=== PATIENT | female | born 1960 | race Caucasian/White ===

== ENCOUNTER 2018-07-28 15:35 | Observation (INO) ==
[2018-07-28] MEDS ORDERED: ASPIRIN PO ONE (15:48)
--- NOTE | 2018-07-28 16:11 | Diag Imaging Result Doc PS360 ---
CHEST-2 VIEWS - 07/28/2018 INDICATION: chest pain COMPARISON: None FINDINGS: The lungs are normally expanded and clear. Heart size and mediastinal contours are normal. No pneumothorax or pleural effusion. There is a calcified granuloma in the left lower lobe. IMPRESSION: Negative exam. Electronically signed by Hayden Almanzar 07/28/2018 4:09 PM
[2018-07-28 16:47] LABS: BASO# 0.08 X1000 (0.0-0.2); BASO% 1.1 % (0.0-0.8); EOS# 0.01 X1000 (0.0-0.7); EOS% 0.1 % (0.0-10.0); HEMATOCRIT 38.3 % (37.0-47.0); HEMOGLOBIN 13.7 g/dL (12.0-16.0); LYMPH% 33.2 % (20.5-51.1); MCH 37.1 PG (27-31); MCHC 35.8 g/dL (33-37); MCV 103.8 FL (81-99); MPV 9.4 FL (7.4-10.4); NEUT# 4.33 X1000 (1.4-6.5); NEUT% 57.6 % (42.2-75.2); PLT 400 X1000 (130-400); RBC 3.69 XMIL (4.2-5.4); RDW 12.2 % (11.5-14.5); WBC 7.52 X1000 (4.8-10.8)
[2018-07-28] MEDS ORDERED: ATIVAN IV ONE (16:58)
[2018-07-28 17:09] LABS: ALB/GLOB RATIO 1.3; ALBUMIN 3.6 g/dL (3.5-5.0); CALCIUM 8.2 mg/dL (8.8-10.2); CREATININE 1.1 mg/dL (0.5-0.9); POTASSIUM 3.8 mmol/L (3.5-5.1); TOTAL BILIRUBIN 0.31 mg/dL (0.20-1.00); TOTAL PROTEIN 6.4 g/dL (6.3-8.3)
[2018-07-28 17:11] LABS: INR 0.83; PROTIME 12.1 Seconds (11.0-16.0)
[2018-07-28 17:12] LABS: PTT 31.7 Seconds (22.3-41.8)
--- NOTE | 2018-07-28 19:38 | HISTORY AND PHYSICAL ---
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 She admits she suffers with anxiety and it has been worse this year after she lost her mother. She has had depression and anxiety. She has been treated for hypertension. She has known hypercholesterolemia. She has never had any surgery other than I think her tubes tied. ALLERGIES: She has no known drug allergies. HOME MEDICATIONS: She does take Ativan 0.5 mg twice a day. I think she is on Cymbalta 60 mg a day and she takes some blood pressure medicines. She did not bring her medicines with her. SOCIAL HISTORY: She denies alcohol or tobacco at this time. REVIEW OF SYSTEMS: General: No weight gain or loss. No fever or chills. HEENT: Unremarkable. Respiratory: No increased work of breathing or dyspnea. Cardiovascular: No chest pain until 3 or 4 days ago and then a pressure type pain. She has had no pleuritic pain. No sharp stabbing pain. Gastrointestinal and Genitourinary: No gross hematuria or dysuria. Neurologic: No focal complaints. PHYSICAL EXAMINATION: VITAL SIGNS: Today, temp 98.1 degrees, pulse 100, respirations 19, blood pressure 124/77, pupils are equal and round. LUNGS: Clear in all lung antony. CARDIOVASCULAR: Regular rhythm and rate without murmur or S3. ABDOMEN: Soft. SKIN: Warm and dry. Weight 138 pounds, height 5 feet 3-1/2 inches. LABORATORY DATA: White count 7520, hematocrit 38, platelet count 400,000. Sodium 136, potassium 3.8, chloride 97, bicarb 23, BUN 16 creatinine 1.1. Blood sugar 152, calcium 8.2, alkaline phosphatase 153, albumin 3.6, PTT is 12, PTT is 31. Her chest x-ray negative. No sign any infiltrate. EKG was normal sinus rhythm, normal axis. Note the troponin is less than 0.01. CK is 56. ProBNP is 102. ASSESSMENT/PLAN: Atypical chest pain. I suspect this is probably related to anxiety and stress. We will check serial cardiac enzymes and she really wanted to see a law office manager. We will get Dr. Ramu Holloway to see her in the morning and see if she shows any sign of evolution but this does not look like[ active coronary artery disease. There is no radiation of pain. It is not associated with exertion. She does have risk factors and I mentioned she does have a history of tobacco. We will check serial EKGs and we will follow her blood pressure closely, and see if we can get her home medications. cc: Stephane Burns MD MTDIlda
[2018-07-28] MEDS ORDERED: TYLENOL PO PRN (22:16)
[2018-07-28] MEDS ORDERED: ZOFRAN IV PRN (22:16)
[2018-07-28] MEDS: ATIVAN PO SCH (22:48)
--- NOTE | 2018-07-29 01:41 | PROVIDER DOCUMENTATION ---
This chart was entered by Deion Robbins Scribe, acting as scribe for Shara Del Real MD. HPI-Chest Pain - General Chief Complaint: Chest Pain Stated Complaint: CP,SOB Time Seen by Provider: 07/28/18 16:34 Source: patient Allergies/Adverse Reactions: Patient Allergies Allergy/AdvReac Type Severity Reaction Status Date / Time No Known Allergies Allergy Verified 07/28/18 16:48 Home Medications: Home Medication List Medication Instructions Recorded Confirmed Last Taken Type Alprazolam 0.5 mg PO BID 07/28/18 07/28/18 07/27/18 History Amlodipine [Norvasc] 10 mg PO DAILY 07/28/18 07/28/18 07/28/18 20:30 History Aspirin 81 mg PO DAILY 07/28/18 07/28/18 07/28/18 History Buspirone [Buspar] 15 mg PO BID 07/28/18 07/28/18 07/28/18 20:30 History Duloxetine [Cymbalta] 60 mg PO DAILY 07/28/18 07/28/18 07/28/18 20:30 History Folic Acid 1 mg PO DAILY 07/28/18 07/28/18 07/28/18 20:30 History Losartan Potassium 100 mg PO DAILY 07/28/18 07/28/18 07/28/18 20:30 History Nebivolol [Bystolic] 5 mg PO DAILY 07/28/18 07/28/18 07/28/18 20:30 History ROSUVAstatin [Crestor] 10 mg PO DAILY 07/28/18 07/28/18 07/28/18 20:30 History - History of Present Illness-CP Nature of Presenting Problem: 57 y/o F presents to the ED c/o chest pain and shortness of breath. Patient reports yesterday she started having a pressure sensation that would last 3-4 minutes. Patient reports that she has had stressful events recently. Patient reports that she has panic attacks 3-4 times per year. Patient denies nausea, vomiting, fever and all other symptoms. Location: reports: substernal Chest Pain Radiation: reports: no radiation Quality of Pain: reports: pressure Severity in ED: mild Onset/Duration: 24 hours ago Timing: intermittent Context/Activities at Onset: reports: none Modifying Factors: improves with: nothing Associated Symptoms: reports: shortness of breath Similar Symptoms Previously?: No Recently Seen Here or By Another Healthcare Provider: No Review of Systems - Adult - REVIEW OF SYSTEMS - ADULT Constitutional: denies: chills, fever Eyes: reports: no symptoms reported Ears, Nose, Mouth & Throat: reports: no symptoms reported Cardiovascular: reports: chest pain. denies: palpitations Respiratory: reports: shortness of breath. denies: cough Gastrointestinal: denies: abdominal pain, diarrhea, nausea, vomiting Genitourinary: reports: no symptoms reported Musculoskeletal: reports: no symptoms reported Integumentary: denies: itching, rash Neurological: denies: dizziness/vertigo, headache/migraines Psychiatric: reports: no symptoms reported Endocrine: reports: no symptoms reported Hematologic/Lymphatic: reports: no symptoms reported Allergic/Immunologic: reports: no symptoms reported All Other Systems: Reviewed and Negative Past History - Adult - PAST MEDICAL HISTORY-ADULT Review of Records: reports: Nursing Assessment Review, Medications Reviewed Major Childhood Illnesses: reports: denies history Cardiovascular: reports: HTN, hyperlipidemia Respiratory: reports: denies history Gastrointestinal: reports: denies history Obstetrical/Gynecological: reports: denies history Genitourinary: reports: denies history Musculoskeletal: reports: denies history Neurological: reports: denies history Psychiatric: reports: depression Endocrine/Immune: reports: denies history Other Conditions: reports: denies history - PRIOR SURGERIES/PROCEDURES Surgical/Procedure History: reports: BTL - IMMUNIZATION STATUS Childhood Immunizations: See Nurse Assessment Flu Vaccine: See Nurse Assessment - SOCIAL HISTORY Smoking: cigarettes Alcohol Use Frequency: 3-4 times a week Physical Exam-General - PHYSICAL EXAM-ADULT Initial Vital Signs Reviewed: Yes - CONSTITUTIONAL General Appearance: alert, no apparent distress, anxious - EYES Eyes: PERRL/EOMI, pink conjunctivae - HEAD, EARS, NOSE, MOUTH & THROAT HENMT: moist mucous membranes, normal ENT inspection - NECK Neck: full range of motion, normal inspection - RESPIRATORY Respiratory: lungs clear, normal breath sounds, no respiratory distress, no accessory muscle use - CARDIOVASCULAR Cardiovascular: normal peripheral pulses, tachycardia - GASTROINTESTINAL (ABDOMEN) Abdominal Exam: normal bowel sounds, non tender, soft - MUSCULOSKELETAL Extremity: normal range of motion, normal capillary refill - SKIN Integumentary: normal color, warm/dry - PSYCHIATRIC Psych/Mental Status: normal mood/affect, oriented x 3 Progress - PLAN OF CARE/RESULTS Progress/Plan/Lab Results: Vital Signs - 8 hr 07/28/18 17:40 07/28/18 17:50 07/28/18 18:00 Temperature Pulse Rate 104 H 99 H 105 H Respiratory Rate 28 H 18 18 Blood Pressure O2 Sat by Pulse Oximetry 100 99 97 07/28/18 18:02 07/28/18 18:10 07/28/18 18:20 Temperature Pulse Rate 102 H 109 H 107 H Respiratory Rate 19 18 19 Blood Pressure 124/77 O2 Sat by Pulse Oximetry 98 99 99 07/28/18 18:30 07/28/18 18:40 07/28/18 18:50 Temperature Pulse Rate 104 H 120 H 113 H Respiratory Rate 20 14 17 Blood Pressure O2 Sat by Pulse Oximetry 98 100 99 07/28/18 19:00 07/28/18 19:02 07/28/18 19:12 Temperature Pulse Rate 118 H 114 H 164 H Respiratory Rate 14 11 L 19 Blood Pressure 140/93 O2 Sat by Pulse Oximetry 97 97 99 07/28/18 19:20 07/28/18 19:30 07/28/18 19:33 Temperature Pulse Rate 111 H 115 H 114 H Respiratory Rate 13 22 17 Blood Pressure 129/85 O2 Sat by Pulse Oximetry 98 99 99 07/28/18 19:40 07/28/18 19:50 07/28/18 20:00 Temperature Pulse Rate 114 H 108 H 108 H Respiratory Rate 23 28 H 19 Blood Pressure O2 Sat by Pulse Oximetry 97 98 97 07/28/18 20:02 07/28/18 20:10 07/28/18 20:20 Temperature Pulse Rate 104 H 107 H 104 H Respiratory Rate 21 20 21 Blood Pressure 131/80 O2 Sat by Pulse Oximetry 97 98 96 07/28/18 20:30 07/28/18 21:15 Temperature 98.3 F Pulse Rate 112 H Respiratory Rate 14 Blood Pressure O2 Sat by Pulse Oximetry 98 Laboratory Results - last 24 hr 07/28/18 07/28/18 07/28/18 15:49 15:49 15:49 WBC 7.52 RBC 3.69 L Hgb 13.7 Hct 38.3 MCV 103.8 H MCH 37.1 H MCHC 35.8 RDW Std Deviation 12.2 Plt Count 400 MPV 9.4 Immature Gran % (Auto) 0.0 Neut % (Auto) 57.6 Lymph % (Auto) 33.2 Hancock % (Auto) 8.0 Eos % (Auto) 0.1 Baso % (Auto) 1.1 H Immature Gran # (Auto) 0.00 Neut # (Auto) 4.33 Lymph # (Auto) 2.50 Hancock # (Auto) 0.60 H Eos # (Auto) 0.01 Baso # (Auto) 0.08 PT INR PTT (Actin FS) Sodium 136 Potassium 3.8 Chloride 97 L Carbon Dioxide 23 L Anion Gap 16 BUN 16 Creatinine 1.1 H Estimated GFR/1.73 m2 52 BUN/Creatinine Ratio 15 Glucose 152 H Calculated Osmolality 276 Calcium 8.2 L Total Bilirubin 0.31 AST 143 H ALT 69 H Alkaline Phosphatase 153 H Creatine Kinase 56 Troponin T [id number] Pept 102 Total Protein 6.4 Albumin 3.6 Globulin 2.8 Albumin/Globulin Ratio 1.3 07/28/18 07/28/18 15:49 15:49 WBC RBC Hgb Hct MCV MCH MCHC RDW Std Deviation Plt Count MPV Immature Gran % (Auto) Neut % (Auto) Lymph % (Auto) Hancock % (Auto) Eos % (Auto) Baso % (Auto) Immature Gran # (Auto) Neut # (Auto) Lymph # (Auto) Hancock # (Auto) Eos # (Auto) Baso # (Auto) PT 12.1 INR 0.83 PTT (Actin FS) 31.7 Sodium Potassium Chloride Carbon Dioxide Anion Gap BUN Creatinine Estimated GFR/1.73 m2 BUN/Creatinine Ratio Glucose Calculated Osmolality Calcium Total Bilirubin AST ALT Alkaline Phosphatase Creatine Kinase Troponin T < 0.010 [id number]-[id number] Pept Total Protein Albumin Globulin Albumin/Globulin Ratio Orders Category Date Time Status Admit - [facility] Routine AdmDCTranf 07/28/18 22:16 Active Apply Mechanical Device [QM] ORDERED Care 07/28/18 22:16 Active Cardiac Monitoring DIRECTED Care 07/28/18 15:48 Active DVT/PE Risk Assess/Protocol [QM] ORDERED Care 07/28/18 22:16 Active Notify MD if DIRECTED Care 07/28/18 22:16 Active Nursing- MD Consult Request ROUTINE Care 07/28/18 22:16 Active Oxygen Therapy- ED Nursing DIRECTED Care 07/28/18 15:48 Active Saline Loc DIRECTED Care 07/28/18 22:16 Active Saline Loc NOW Care 07/28/18 15:48 Active Vital Signs Order Q 4-HR ASSESS Care 07/28/18 22:16 Active Z-Document. for Tele Applied ORDERED Care 07/28/18 22:16 Completed Physician/Provider Consults Routine Cons 07/28/18 22:16 Ordered Heart Healthy Diet Diet 07/28/18 22:16 Active CHEST-2 VIEWS [RAD] Stat Exams 07/28/18 15:48 Completed BASIC METABOLIC PANEL [CHEM] Routine Lab 07/29/18 06:00 Ordered CBC WITH ELECTRONIC DIFF [HEME] Stat Lab 07/28/18 15:49 Completed CK PROFILE [SP CHEM] Q8H Lab 07/28/18 22:45 Completed CK PROFILE [SP CHEM] Q8H Lab 07/29/18 06:16 Ordered CK PROFILE [SP CHEM] Q8H Lab 07/29/18 14:16 Ordered CK PROFILE [SP CHEM] Stat Lab 07/28/18 15:49 Completed COMPREHENSIVE METABOLIC PANEL [CHEM] Stat Lab 07/28/18 15:49 Completed FOLATE Routine Lab 07/29/18 06:00 Ordered FREE T4 Routine Lab 07/29/18 06:00 Ordered MAGNESIUM [CHEM] Routine Lab 07/29/18 06:00 Ordered PRO B-NATRIURETIC PEPTIDE Stat Lab 07/28/18 15:49 Completed PROTIME WITH INR [COAG] Stat Lab 07/28/18 15:49 Completed PTT [COAG] Stat Lab 07/28/18 15:49 Completed TROPONIN T Q8H Lab 07/28/18 22:45 Completed TROPONIN T Q8H Lab 07/29/18 06:16 Ordered TROPONIN T Q8H Lab 07/29/18 14:16 Ordered TROPONIN T Stat Lab 07/28/18 15:49 Completed TSH Routine Lab 07/29/18 06:00 Ordered VITAMIN B12 Routine Lab 07/29/18 06:00 Ordered Acetaminophen [Tylenol] Med 07/28/18 22:16 Active 650 mg PO Q6H PRN PRN Aspirin Med 07/29/18 09:00 Active 325 mg PO DAILY Aspirin Med 07/28/18 15:48 Discontinued 325 mg PO NOW ONE Duloxetine [Cymbalta] Med 07/29/18 09:00 Active 60 mg PO QAM Lorazepam [Ativan] Med 07/28/18 22:16 Active 0.5 mg PO BID Lorazepam [Ativan] Med 07/28/18 16:58 Discontinued 1 mg IV NOW ONE Lorazepam [Ativan] Med 07/28/18 22:16 Active 1 mg PO Q4H PRN PRN Omeprazole [Prilosec] Med 07/29/18 07:00 Active 20 mg PO DAILY@0700 Ondansetron [Zofran] Med 07/28/18 22:16 Active 4 mg IV Q4H PRN PRN CP/SOB/Palp >45 yrs of Age Stat Oth 07/28/18 15:48 Ordered Oxygen Device Routine Oth 07/28/18 22:16 Active Telemetry [OM.EQ] Routine Oth 07/28/18 22:16 Active EKG [EKG] Routine Ther 07/29/18 07:00 Ordered EKG [EKG] Stat Ther 07/28/18 15:48 Ordered Transfer/Admit Order [TRANSFER] Routine Transfer 07/28/18 19:16 Completed Heart score 4 Result Diagrams: 07/28/18 15:49 07/28/18 15:49 - EKG 1 Time of EKG reading by physician:: 15:50 EKG Read and Signed by:: Hossein Elizondo EKG Interpretation (*Must complete 3 of following elements*): Abnormal Rate: 141 Rhythm: sinus tachycardia ST Wave: non-specific ST changes - XRAY 1 XRAY Study: Chest Impression: See EMR Report ( CHEST-2 VIEWS - 07/28/2018 INDICATION: chest pain COMPARISON: None FINDINGS: The lungs are normally expanded and clear. Heart size and mediastinal contours are normal. No pneumothorax or pleural effusion. There is a calcified granuloma in the left lower lobe. IMPRESSION: Negative exam. Electronically signed by Hayden Almanzar 07/28/2018 4:09 PM [id number] Interpreting Physician: Hayden Almanzar MD Dictated Date/Time: 07/28/18 1600 cc: Hossein Elizondo MD; Chapito Briggs MD) - CONSULTS/PCP/HOSPITALIST Notification #1 *Consult/PCP/Hospitalist*: Dr. Maza Time Discussed: 18:42 Consult Disposition: Will see in ED Departure - Departure Date of Disposition Decision: 07/28/18 Time of Disposition Decision: 18:42 DIAGNOSIS: Chest pain Disposition: ADMITTED INPATIENT 09 Certified Medical Emergency: Emergent Condition: Stable - Critical Care Note This patient required my direct & personal management of CC.: No Attestation - Physician/ HUNTER Attestation Patient care was provided by Advanced Practice Provider:: No The physician spent face to face time with patient:: Yes Advanced Practice Provider documentation review:: Supervising physician onsite and consulted in the evaluation and care of this patient. The physician did have a face to face encounter with the patient. This chart was documented by the indicated scribe, (Deion Robbins Scribe) and accurately reflects the services I performed and decisions made by me, Shara Del Real MD, as attested by the provider's signature.
[2018-07-29] MEDS: PRILOSEC PO SCH (06:16)
[2018-07-29 06:54] LABS: AGAP 11; BUN 9 mg/dL (8-22); CALCIUM 8.1 mg/dL (8.8-10.2); CHLORIDE 97 mmol/L (98-107); COSMO 263; CREATININE 0.8 mg/dL (0.5-0.9); ESTIMATED GFR > 60; GLUCOSE 89 mg/dL (70-104); POTASSIUM 3.6 mmol/L (3.5-5.1); SODIUM 132 mmol/L (136-145); TCO2 24 mmol/L (25-35)
[2018-07-29 07:18] LABS: FREE T4 1.23 ng/dL (0.93-1.70)
[2018-07-29] MEDS: ASPIRIN PO SCH (09:37)
[2018-07-29] MEDS: CYMBALTA PO SCH (09:38)
[2018-07-29] MEDS: ATIVAN PO PRN ×2 (09:38→18:42)
[2018-07-29] MEDS: ATIVAN PO SCH ×2 (09:38→21:30)
--- NOTE | 2018-07-29 11:52 | PROGRESS NOTE ---
DATE: 07/29/2018 SUBJECTIVE: Patient was admitted on 07/28, yesterday. She is seen by Dr. Chapito Briggs and was having chest pain throughout the day. EKG and labs have been unremarkable. Troponin less than 0.01. She is feeling better today. She feels like the majority of this is anxiety, but would like Cardiology to look at her. She is on Cymbalta 60 mg a day, aspirin 325 mg a day, Ativan 0.5 mg b.i.d., and getting lorazepam 1 mg p.o. p.r.n. and Prilosec 20 mg a day. cc: Stephane Burns MD
--- NOTE | 2018-07-29 16:20 | PROGRESS NOTE ---
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 She does score a moderate risk on the heart score, so her enzymes and EKG are unremarkable, but we are going to perform a stress test on Tuesday and continue to observe her. She is doing better. No chest pain at this time, but we will stay here this weekend. Stress test on Tuesday. cc: Stephane Burns MD
--- NOTE | 2018-07-29 23:37 | CARDIOLOGY CONSULTATION ---
DATE: 07/29/2018 CHIEF COMPLAINT: Chest pain. HISTORY OF PRESENT ILLNESS: Ms Reeder is a 57-year-old female with a history of hypertension, hyperlipidemia, and tobacco abuse who presents for chest pain that is located in the left chest area. It has been going on for 2 days and relatively constant with no real exertional component. It is located in the left chest area and no real radiation. She has associated shortness of breath with it and has had some episodes of diaphoresis. She said the pain has been going on for around 2 days now. She has no previous cardiac history that she is aware of. PAST MEDICAL HISTORY: 1. Significant for anxiety. 2. Hypertension. 3. Hyperlipidemia. SOCIAL HISTORY: She does smoke cigarettes. FAMILY HISTORY: Significant for hypertension. REVIEW OF SYSTEMS: A 10 system review of systems is negative except for those mentioned in HPI. PHYSICAL EXAM: Vital signs: She is afebrile, heart rate of 95, blood pressure 113/67. General: She is in no acute distress. HEENT: Oropharynx is moist. Normal dentition. Eye examination shows pink conjunctivae, white sclerae. Neck: Shows no obvious thyromegaly or thyroid tenderness. Cardiovascular: She sounds to be in a regular rate and rhythm. She has no murmurs. She has no S3. No lower extremity edema. No carotid bruits. Chest: Clear bilaterally. She has no increased work of breathing. Abdomen: Soft, nontender, nondistended. She has no obvious organomegaly. Skin: Warm and dry throughout without any rashes. Neurological: She is moving all extremities well. She has no lateralizing deficits. PERTINENT DATA: Her EKG shows sinus rhythm, no signs of ischemia or injury. This was reviewed by me. Her chest x-ray was unremarkable. Her lab studies show sodium 132, potassium 3.6, BUN 9, creatinine 0.8. White count 7.5, hematocrit 38. She has negative cardiac enzymes. ASSESSMENT: Ms. Reeder is a 57-year-old female with risk factors for coronary disease who presented with chest pain. She does have a low level elevation of her AST and ALT as well. PLAN: We will likely recommend myocardial perfusion on Tuesday. She has a moderate risk heart score based on her history. We will continue on current medications. She is on aspirin presently. cc: Ramu Holloway MD
[2018-07-30] MEDS: PRILOSEC PO SCH (06:08)
[2018-07-30] MEDS: ASPIRIN PO SCH (09:28)
[2018-07-30] MEDS: CYMBALTA PO SCH (09:28)
[2018-07-30] MEDS: ATIVAN PO SCH ×2 (09:28→21:16)
[2018-07-30] MEDS: ATIVAN PO PRN ×3 (10:43→18:54)
--- NOTE | 2018-07-30 15:41 | PROGRESS NOTE ---
DATE: 07/30/2018 Ms. Reeder has not had any further chest pain, no fever. Feels much better. She is scheduled for a GXT in the morning. Temperature 97.8 degrees, pulse 90, respirations 16, blood pressure 122/76. Pupils are equal and round.Lungs: Clear in all lung antony. Cardiovascular: Regular rhythm, rate without murmur or S3. Abdomen: Soft. Skin: Warm, dry. Blood pressures 113/63, 127/70, 122/76. ASSESSMENT AND PLAN: 1. Atypical chest pain. Cardiac score she is moderate, did have low level elevation of AST and ALT so plan on a myocardial perfusion scan tomorrow. 2. General anxiety, seems to be doing better from that aspect. Continue her present aspirin 325 mg a day, Ativan 0.5 mg b.i.d., Cymbalta 60 mg a day. cc: Stephane Burns MD
--- NOTE | 2018-07-30 18:51 | CARDIOLOGY PROGRESS NOTE ---
DATE: 07/30/2018 SUBJECTIVE: She is doing well. She has no pain complaints. Tolerating oral intake. PHYSICAL EXAM: She is afebrile, heart rate 90, blood pressure 122/76.General: She is in no acute distress. Cardiovascular: She sounds to be in a regular rate and rhythm. She has no murmurs. She has no S3. No lower extremity edema. Chest: Clear bilaterally. She has no increased work of breathing. Her abdomen is soft, nontender. PERTINENT DATA: Her laboratories were reviewed from yesterday. No acute abnormalities. ASSESSMENT: Ms. Reeder is a 57-year-old female who presented with chest pain. She had an intermediate risk based on her heart score. PLAN: She is a set up for myocardial perfusion imaging in the morning. If this is unremarkable, then she may be discharged from a cardiovascular standpoint. Presently I do not have any acute cardiovascular recommendations other than continuing on her current medications which include aspirin. cc: Ramu Holloway MD
[2018-07-31] MEDS: PRILOSEC PO SCH (06:17)
--- NOTE | 2018-07-31 07:11 | EKG Report ---
Test Performed on : 07/29/2018 06:25:20 AM Test Reason : chest pain Blood Pressure : / mmHG Vent. Rate : 077 BPM Atrial Rate : 077 BPM P-R Int : 142 ms QRS Dur : 082 ms QT Int : 370 ms P-R-T Axes : 058 055 043 degrees QTc Int : 418 ms Normal sinus rhythm. Normal ECG When compared with ECG of 28-JUL-2018 15:45, (Unconfirmed) Vent. rate has decreased BY 64 BPM T wave inversion no longer evident in Anterior leads Confirmed by Abel HIDALGO, Eliseo Reyna ([id number]) on 07/31/2018 11:14:16 AM
--- NOTE | 2018-07-31 07:36 | EKG Report ---
Test Performed on : 07/28/2018 3:45:10 PM Test Reason : chest pain Blood Pressure : / mmHG Vent. Rate : 141 BPM Atrial Rate : 141 BPM P-R Int : 112 ms QRS Dur : 072 ms QT Int : 356 ms P-R-T Axes : 000 068 069 degrees QTc Int : 545 ms Sinus tachycardia. T wave abnormality, consider anterior ischemia Abnormal ECG When compared with ECG of 01-APR-2009 21:31, T wave inversion now evident in Anterior leads Unconfirmed Result
[2018-07-31] MEDS: CYMBALTA PO SCH (11:00)
[2018-07-31] MEDS ORDERED: NICODERM PATCH TD SCH (11:00)
[2018-07-31] MEDS: ATIVAN PO SCH (11:00)
[2018-07-31] MEDS: ASPIRIN PO SCH (11:00)
[2018-07-31] MEDS: ATIVAN PO PRN (11:58)
--- NOTE | 2018-07-31 13:15 | ECHO REPORT ---
ORDER DATE: 07/31/2018 ECHOCARDIOGRAPHIC MEASUREMENTS: 1. Interventricular septum 0.7. 2. Left ventricular posterior wall 0.7. 3. Diastolic diameter 4.4. 4. Left atrium 3. 5. Aorta 3. SUMMARY OF 2-DIMENSIONAL IMAGIN. Normal left ventricular cavity size. Estimated ejection fraction of 65%. 2. Aortic valve leaflets are trileaflet. Pulmonic valve was normal. Tricuspid valve was normal. Mitral valve was normal. 3. Peak velocity across the aortic valve less than 2 m/sec. There is no aortic stenosis or regurgitation. There is trace to mild mitral regurgitation. Mild tricuspid regurgitation. Peak velocity across the tricuspid valve was 2.4 m/sec. There is trace pulmonary regurgitation. 4. There is no pericardial effusion or obvious intracardiac mass or thrombus seen. cc: MD Ramu Wheatley MD
--- NOTE | 2018-07-31 14:58 | Diag Imaging Result Document ---
PROCEDURE NAME: MYOCARDIAL PERF SCAN, STR/REST - 07/31/2018 Exercise Cardiolite stress test. Patient exercised on Shiv protocol for 3 minutes to a peak heart rate of 157, 82% exercise predicted maximal capacity. Target heart rate achieved quickly. Patient exercise was stopped because of fatigue. There was no chest pain. There was no dysrhythmias noted. Normal blood pressure response to exercise. Cardiolite was injected. 10.9 mCi of Cardiolite was injected for the rest phase. 30.6 mCi of Cardiolite was injected for the stress phase. Images were obtained in standard views. Images revealed significant chest wall and diaphragmatic attenuation. Normal left ventricular cavity size. Normal myocardial perfusion. Left ventricular ejection fraction 90%. CONCLUSIONS: 1. No chest pain. 2. Negative exercise stress electrocardiogram at low workload. 3. Normal myocardial perfusion. 4. Left ventricular ejection fraction 90%. cc: MD Ramu Wheatley MD
--- NOTE | 2018-07-31 15:09 | CARDIOLOGY PROGRESS NOTE ---
DATE: 07/31/2018 SUBJECTIVE: Ms. Reeder has not had any episodes of chest pain overnight. PHYSICAL EXAMINATION: The patient is afebrile. Heart rate of 95, blood pressure is 122/79. Most of the systolics appear to have been in the 110s to 120s. General: She is in no acute distress. Cardiovascular: In a regular rate and rhythm. No murmurs. No S3. Chest: Clear bilaterally. She has no increased work of breathing. Abdomen: Soft, nontender. PERTINENT DATA: Her sodium is 132, potassium 3.6. Cardiac enzymes have been negative. These were labs from the . She had an echocardiogram performed on the demonstrating a normal ejection fraction. No significant valvular abnormalities. Review of her nuclear scan showed no evidence of significant ischemic defects and a normal ejection fraction. ASSESSMENT: Ms. Reeder is a 57-year-old smoking female who presented with chest pain. PLAN: At this point she does not seem to have a cardiovascular etiology of her chest pain. Her stress test, echocardiogram and EKG has been unremarkable. Her cardiac enzymes were unremarkable. Her blood pressure seems to be controlled on no medications. It would be reasonable to consider discharging her off of blood pressure medicines to follow with her primary care physician and consider reinstitution. I have counseled her against smoking today as I did yesterday. She may follow up with primary care physician. At this point, she does not have acute need for cardiovascular followup. cc: Ramu Holloway MD MTDIlda
[2018-07-31 15:34] VITALS: BP 125/78
--- NOTE | 2018-07-31 17:26 | DISCHARGE SUMMARY ---
ADMISSION DATE: 07/28/2018 DISCHARGE DATE: 07/31/2018 HOSPITAL COURSE: She is followed by Dr. Chapito Briggs. Presented on 07/28/2018 with chest pain that has been going on for a while, but seemed to be worse the day of admission, seemed to wax and wane. It felt like pressure intermittent. It did not seem to be related too much to exertion, no radiation into her jaw or arm. Her cardiac enzymes and EKG were unremarkable, and she does have a history of anxiety. We did put her on some Ativan. She underwent myocardial perfusion scan which was done on 07/31/2018. She had no chest pain. Negative exercise stress test. Normal myocardial perfusion. Left ventricular fraction was 90%, so a very strong ventricle. So, I feel like she can go home. We will discharge her off of her blood pressure medications and counseled against importance of stopping smoking. We will give her some nicotine patch. DISCHARGE MEDICATIONS: Will discharge on: Aspirin 325 mg a day, Cymbalta 60 mg a day, Ativan 0.5 mg b.i.d., nicotine patch 21 mg a day. Looking at her blood pressures, they look well controlled. She is off her losartan, so we will keep her off the losartan for now. FOLLOWUP: Follow up with primary care. cc: Stephane Burns MD
== END 2018-07-31 17:31 | disposition home or self-care (01) ==
LOC: ED 15:35 → 3N 21:21 → INTOOBSV 21:21
PROVIDERS: ATTEND Emergency Medicine
CPT/HCPCS: 71020; 71046; 78452; 80048; 80053; 82550; 82607; 82746; 83735; 83880; 84439; 84443; 84484; 85025; 85610; 85730; 93005; 93010; 93017; 93306; 94760; 94761; 96374; 99285; A9270; A9500; J2060